=== PATIENT | female | born 1980 | race Caucasian/White ===

== ENCOUNTER → 2019-10-24 | Outpatient (CLI) | payer OTHER ==
--- NOTE | 2019-10-26 11:46 | REP ---
NONVASCULAR EXTREMITY ULTRASOUND CLINICAL: Lump. TECHNIQUE: Real-time rene scale and color evaluation using linear high frequency transducer. FINDINGS: Directed ultrasound examination along the left anterior arriaga demonstrates a 2.0 x 1.0 x 2.8 cm ovoid cystic collection with a small amount of layering debris in the subcutaneous tissue. IMPRESSION: Nonspecific cystic collection with small amount of debris. Differential diagnosis includes cyst, as well as posttraumatic collection. Correlation is required along with follow-up if necessary. MTDD
== END ==
LOC: M RAD 15:45
PROVIDERS: ATTEND Physician Assistant
DX: R22.42 Localized swelling, mass and lump, left lower limb (principal)